=== PATIENT | male | born 1995 | race Caucasian/White ===

== ENCOUNTER 2022-03-20 07:55 | Inpatient (IN) | payer MEDICAID ==
[~2022-03-20] VITALS: Ht 182.9 cm; Wt 72.6 kg
[2022-03-20 11:25] LABS: COVID AG,FIA SOURCE NASAL SWAB
[2022-03-21] MEDS: QUEtiapine FUMARATE 100 MG TABLET PO PRN (00:17)
[2022-03-21] MEDS: LORazepam 2 MG TABLET PO PRN ×2 (00:17→20:28)
[2022-03-21] MEDS: ZOLPIDEM TARTRATE 10 MG TABLET PO PRN (00:17)
[2022-03-21 00:42] VITALS: BP 121/68
[2022-03-21 08:20] VITALS: BP 110/68
[2022-03-21] MEDS ORDERED: LOPERAMIDE HCL 2 MG CAPSULE PO PRN (09:30)
[2022-03-21] MEDS ORDERED: ACETAMINOPHEN 325 MG TABLET PO PRN (09:30)
[2022-03-21] MEDS ORDERED: MAG HYDROX/AL HYDROX/SIMETH ES 30 ML SUSPENSION UDCUP PO PRN (09:30)
[2022-03-21] MEDS ORDERED: PETROLATUM,WHITE 28 GM JELLY TP PRN (09:30)
[2022-03-21] MEDS ORDERED: ONDANSETRON HCL 4 MG TABLET PO PRN (09:30)
[2022-03-21] MEDS ORDERED: DOCUSATE SODIUM 100 MG CAPSULE PO PRN (09:30)
[2022-03-21] MEDS ORDERED: MAGNESIUM HYDROXIDE SUSPENSION 30 ML UDCUP PO PRN (09:30)
[2022-03-21] MEDS ORDERED: CloNIDine HCL 0.1 MG TABLET PO PRN (09:30)
[2022-03-21] MEDS ORDERED: GuaiFENesin/D-METHORPHAN [SUGAR-FREE] 200-20MG/10 ML SYRUP UDCUP PO PRN (09:30)
[2022-03-21] MEDS ORDERED: ALBUTEROL SULFATE HFA 90 MCG/PUFF 8 GM INHALER IH PRN (09:30)
[2022-03-21] MEDS ORDERED: IBUPROFEN 400 MG TABLET PO PRN (09:30)
[2022-03-21] MEDS: ARIPiprazole 10 MG TABLET PO SCH (14:32)
[2022-03-21 20:20] VITALS: BP 114/62
[2022-03-21] MEDS: TraZODone HCL 100 MG TABLET PO SCH (20:28)
[2022-03-22 08:38] VITALS: BP 123/68
[2022-03-22] MEDS: ARIPiprazole 10 MG TABLET PO SCH (09:01)
[2022-03-22] MEDS: LORazepam 2 MG TABLET PO PRN (16:59)
[2022-03-22] MEDS: TraZODone HCL 100 MG TABLET PO SCH (20:17)
[2022-03-22] MEDS: ZOLPIDEM TARTRATE 10 MG TABLET PO PRN (20:17)
[2022-03-22 20:22] VITALS: BP 104/65
[2022-03-23] MEDS: LORazepam 2 MG TABLET PO PRN ×2 (00:23→08:50)
[2022-03-23] MEDS: ARIPiprazole 10 MG TABLET PO SCH (08:47)
[2022-03-23 09:55] VITALS: BP 105/62
[2022-03-23] MEDS ORDERED: LORazepam 2 MG/ML VIAL ONE (11:41)
[2022-03-23] MEDS ORDERED: HALOPERIDOL LACTATE 5 MG/ML VIAL ONE (11:41)
[2022-03-23] MEDS ORDERED: DiphenhydrAMINE HCL 50 MG/ML VIAL ONE (11:42)
[2022-03-23] MEDS ORDERED: DiphenhydrAMINE HCL 50 MG/ML VIAL IM ONE ×2 (11:45→15:50)
[2022-03-23] MEDS ORDERED: HALOPERIDOL LACTATE 5 MG/ML VIAL IM ONE ×2 (11:45→15:50)
[2022-03-23] MEDS ORDERED: LORazepam 2 MG/ML VIAL IM ONE ×2 (11:45→15:50)
[2022-03-23 20:14] VITALS: BP 106/63
[2022-03-23] MEDS: ZOLPIDEM TARTRATE 10 MG TABLET PO PRN (20:28)
[2022-03-23] MEDS: TraZODone HCL 100 MG TABLET PO SCH (20:28)
[2022-03-24] MEDS: LORazepam 2 MG TABLET PO PRN ×2 (02:11→17:04)
[2022-03-24 08:23] VITALS: BP 127/70
[2022-03-24] MEDS: ARIPiprazole 10 MG TABLET PO SCH (08:34)
[2022-03-24] MEDS: ZOLPIDEM TARTRATE 10 MG TABLET PO PRN (20:06)
[2022-03-24] MEDS: TraZODone HCL 100 MG TABLET PO SCH (20:06)
[2022-03-24] MEDS: QUEtiapine FUMARATE 100 MG TABLET PO PRN (20:06)
[2022-03-24 20:20] VITALS: BP 108/64
[2022-03-25 06:10] VITALS: BP 111/62
[2022-03-25] MEDS: ARIPiprazole 10 MG TABLET PO SCH (08:20)
[2022-03-25 08:37] VITALS: BP 111/55
[2022-03-25] MEDS: LORazepam 2 MG TABLET PO PRN ×2 (10:28→22:05)
[2022-03-25] MEDS: ZOLPIDEM TARTRATE 10 MG TABLET PO PRN (20:10)
[2022-03-25] MEDS: TraZODone HCL 100 MG TABLET PO SCH (20:10)
[2022-03-25 20:32] VITALS: BP 107/64
[2022-03-25] MEDS: QUEtiapine FUMARATE 100 MG TABLET PO PRN (23:48)
[2022-03-26 05:52] VITALS: BP 112/60
[2022-03-26] MEDS: ARIPiprazole 10 MG TABLET PO SCH (08:13)
[2022-03-26 10:00] VITALS: BP 108/65
[2022-03-26] MEDS: NICOTINE 14 MG/24 HOUR PATCH TD PRN (11:27)
[2022-03-26] MEDS: QUEtiapine FUMARATE 100 MG TABLET PO PRN ×2 (17:25→22:23)
[2022-03-26] MEDS: LORazepam 2 MG TABLET PO PRN ×2 (17:25→22:23)
[2022-03-26 20:12] VITALS: BP 100/64
[2022-03-26] MEDS: TraZODone HCL 100 MG TABLET PO SCH (20:29)
[2022-03-26] MEDS: ZOLPIDEM TARTRATE 10 MG TABLET PO PRN (20:29)
[2022-03-27] MEDS: ARIPiprazole 10 MG TABLET PO SCH (08:34)
[2022-03-27] MEDS: LORazepam 2 MG TABLET PO PRN ×2 (08:34→20:24)
[2022-03-27 09:44] VITALS: BP 120/70
[2022-03-27] MEDS: NICOTINE 14 MG/24 HOUR PATCH TD PRN (13:13)
[2022-03-27 20:14] VITALS: BP 123/80
[2022-03-27] MEDS: TraZODone HCL 100 MG TABLET PO SCH (20:24)
[2022-03-27] MEDS: QUEtiapine FUMARATE 100 MG TABLET PO PRN (20:24)
[2022-03-27] MEDS: ZOLPIDEM TARTRATE 10 MG TABLET PO PRN (20:24)
[2022-03-28 07:25] LABS: APPEARANCE,URINE CLEAR (CLEAR); BILIRUBIN,URINE NEGATIVE (NEGATIVE); GLUCOSE, URINE (UA) NEGATIVE (NEGATIVE); KETONES,URINE NEGATIVE (NEGATIVE); LEUKOCYTE ESTERASE ,URINE NEGATIVE (NEGATIVE); NITRATE,URINE NEGATIVE (NEGATIVE); OCCULT BLOOD,URINE NEGATIVE (NEGATIVE); PH,URINE 5.5 (5.0-8.0); PROTEIN,URINE NEGATIVE (NEGATIVE); SPECIFIC GRAVITIY, URINE 1.025 (1.003-1.030); UROBILINOGEN,URINE <=1.0 mg/dL (<=1.0)
[2022-03-28 07:48] LABS: AMPHET/METH SCREEN,URINE NEGATIVE (NEGATIVE); BARBITURATE SCREEN, URINE NEGATIVE (NEGATIVE); BENZODIAZEPINES SCREEN,URINE NEGATIVE (NEGATIVE); CANNABINOID SCREEN,URINE NEGATIVE (NEGATIVE); COCAINE SCREEN,URINE NEGATIVE (NEGATIVE); METHADONE SCREEN, URINE NEGATIVE (NEGATIVE); OPIATE SCREEN,URINE NEGATIVE (NEGATIVE)
[2022-03-28 07:49] LABS: PHENCYCLIDINE SCREEN,URINE NEGATIVE (NEGATIVE)
[2022-03-28 08:15] VITALS: BP 110/72
[2022-03-28] MEDS: ARIPiprazole 10 MG TABLET PO SCH (08:18)
[2022-03-28] MEDS: NICOTINE 14 MG/24 HOUR PATCH TD PRN (08:56)
[2022-03-28] MEDS ORDERED: TRAZ-257 PO ×2 (11:11→12:34)
[2022-03-28] MEDS ORDERED: ARIP10TA38 PO (12:34)
== END 2022-03-28 13:45 | disposition home or self-care (01) | DRG 751 ==
LOC: EMS 07:59 → B3A 20:34
PROVIDERS: ADMIT Psychiatry & Neurology Psychiatry; ATTEND Psychiatry & Neurology Psychiatry
DX: F33.2 Major depressive disorder, recurrent severe without psychotic features (principal); G93.40 Encephalopathy, unspecified; R45.851 Suicidal ideations; G47.00 Insomnia, unspecified; F19.10 Other psychoactive substance abuse, uncomplicated; Z20.822 Contact with and (suspected) exposure to COVID-19; Z59.00 Homelessness unspecified; Z65.3 Problems related to other legal circumstances; Z79.899 Other long term (current) drug therapy
CPT/HCPCS: 80307; 81003; 99285; J1200; J1630; J2060